=== PATIENT | male | born 1970 | race African-American/Black ===

== ENCOUNTER 2018-08-27 16:03 | Inpatient (IN) | payer MEDICARE, OTHER ==
[2018-08-27 16:29] LABS: #Basophils 0.1 thou/uL (0.0-0.2); #Lymphocytes 2.4 thou/uL (1.20-3.40); #Monocytes 0.7 thou/uL (0.11-0.59); #Neutrophils 14.7 thou/uL (1.40-6.50); %Basophils 0.3 % (0.0-1.0); %Eosinophils 0.2 % (0.0-10.0); %Lymphocytes 13.4 % (21.0-51.0); %Monocytes 3.9 % (0.0-10.0); %Neutrophils 82.2 % (42.0-75.0); Hemoglobin 14.8 g/dL (14.0-18.0); Mean Corpuscular Hemoglobin 30.4 pg (27.0-31.0); Mean Corpuscular Volume 95.2 fL (78.0-98.0); Platelet Count 190 thou/uL (130-400); RBC Distribution Width 11.9 % (11.5-14.5); Red Blood Cell (RBC) Count 4.86 mill/uL (4.70-6.10); White Blood Cell (WBC) Count 17.9 thou/uL (4.8-10.8)
--- NOTE | 2018-08-27 16:49 | CT ---
Head CT without contrast 08/27/2018: COMPARISON: 04/04/2013 HISTORY: Seizures TECHNIQUE: Axial CT imaging at 5 mm intervals from vertex through skull base without contrast FINDINGS: The imaged paranasal sinuses and mastoid air cells are well aerated. No displaced calvarial fracture. No intracranial hemorrhage, midline shift, mass effect, or ventricular enlargement. IMPRESSION: No acute findings.
[2018-08-27 16:50] LABS: ALT (SGPT) 24 U/L (8-55); AST (SGOT) 38 U/L (5-34); Acetaminophen Less than 6.0 mcg/mL (10.0-30.0); Albumin 4.4 g/dL (3.5-5.0); Alcohol Less than 10 mg/dL (Less than 10); Alkaline Phosphatase 65 U/L (40-150); Anion Gap 19 mmol/L (10-20); BUN (Urea Nitrogen) 16 mg/dL (8.9-20.6); Bilirubin, Total 0.6 mg/dL (0.2-1.2); Calc. Creatinine Clearance 0 mL/min (70-130); Calcium 9.5 mg/dL (7.8-10.44); Carbon Dioxide 16 mmol/L (22-29); Chloride 112 mmol/L (98-107); Estimated GFR-MDRD 70; Globulin 2.4 g/dL (2.4-3.5); Glucose 94 mg/dL (70-105); Potassium 4.3 mmol/L (3.5-5.1); Protein, Total 6.8 g/dL (6.0-8.3); Salicylate Less than 8.0 mg/dL (15.0-30.0); Sodium 143 mmol/L (136-145)
[2018-08-27] MEDS ORDERED: Lidocaine 1% w/Epinephrine 1:100K 20 ML VIAL ONE (18:06)
[2018-08-27] MEDS ORDERED: Lorazepam 2 MG/ML VIAL ONE (18:50)
[2018-08-27] MEDS ORDERED: levETIRAcetam 500 MG/100 ML PREMIX BAG ONE (19:15)
[2018-08-27 19:35] LABS: Amphetamine Not Detected (NotDetected); Barbiturates Screen Not Detected (NotDetected); Benzodiazepine Screen Detected (NotDetected); Cocaine Metabolite Screen Not Detected (NotDetected); Medtox Control Line Valid? VALID (VALID); Medtox Reader # READER 4; Methadone Not Detected (NotDetected); Methamphetamine Not Detected (NotDetected); Opiate Screen Not Detected (NotDetected); Oxycodone Screen Not Detected (NotDetected); Phencyclidine (PCP) Not Detected (NotDetected); THC/Cannabinoid Screen Not Detected (NotDetected); Tricyclic Screen Not Detected (NotDetected)
[2018-08-27] MEDS ORDERED: Ondansetron ODT 4 MG TAB PO PRN (20:03)
[2018-08-27] MEDS ORDERED: Acetaminophen 650 MG Suppository PR PRN (20:03)
[2018-08-27] MEDS ORDERED: Ondansetron PF 4 MG/2 ML Vial IVP PRN (20:03)
--- NOTE | 2018-08-27 20:53 | HP ---
PRIMARY CARE DOCTOR: Dr. Flo Culver. CODE STATUS: Full code. CHIEF COMPLAINT FOR THIS PATIENT: Seizure. TIME OF EVALUATION: 8:00 p.m. HISTORY OF PRESENT ILLNESS: This is a 48 years old male patient with past medical history of seizure. The patient has three witnessed seizures today starting early this morning. The brother is the one giving the history since the patient is status post Ativan and is postictal, so he is not cooperative with interview. The brother says the patient had a one time seizure in the morning. He recovered and he had a second one, fell back hitting the wall with some lacerations in the skull and for that reason was brought in here to the hospital. We have been unable to get accurate information about the medication that he is taking. He was given Keppra since the patient was being ready to be discharged, however, developed another episode of seizure. The patient also has been treated with Ativan that will continue to be treated overnight. We will monitor in the stroke unit and symptoms are severe with no clear triggers, no alleviating factors. PAST MEDICAL HISTORY: The patient has history of epilepsy. PAST SURGICAL HISTORY: Cholecystectomy. PSYCHIATRIC HISTORY: No previous psych history. SOCIAL HISTORY: No alcohol, no drugs no smoking history. FAMILY HISTORY: Reviewed, noncontributory to the current presentation. ALLERGIES: KNOWN ALLERGIES TO TEGRETOL. REPORTED MEDICATIONS: Unable to obtain. PHYSICAL EXAMINATION: VITAL SIGNS: On presentation, blood pressure 122/71, respiratory rate was 18, pain unable to rate, heart rate 99, temperature 97.5, oxygen saturation 96% on room air. GENERAL: The patient is postictal, sedated after Ativan been given for seizure. Not in acute distress. HEENT: Eyes, normal conjunctivae. Moist oral mucosa. Anicteric. No JVD. RESPIRATORY: Bilateral air entry. No rales. No wheezes. Symmetric expansion. CARDIOVASCULAR: Normal rate. Regular rhythm. No murmurs. No gallop. No edema. ABDOMEN: Soft. Normal bowel sounds. MUSCULOSKELETAL: He has baseline range of motion and strength. SKIN: Warm, intact. No pallor. No rash. No redness. Capillary refill seems to be intact. NEUROLOGICAL: The patient is moving all extremities. He is still postictal, also with deep stimulation. PSYCH: Unable to fully explore. IMAGING STUDIES: Brain CT was reviewed. The patient has no acute findings. LABORATORY DATA: Reviewed. The patient has white count 17.9, hemoglobin 14.8, platelet count 190. Chemistry: Sodium 143, potassium 4.3, chloride 112, carbon dioxide 16, anion gap 19, BUN 16, creatinine 1.31, previous creatinine was 0.94 , GFR 70. Glucose 94, calcium 9.5, total bilirubin 0.6, AST 38, ALT 24, alkaline phosphatase 65. Serum total protein 6.8, albumin 4.4, globulin 2.4 albumin globulin ratio 1.8. Toxicology was done and was positive for benzos. Negative for alcohol or drug screen. ASSESSMENT AND PLAN: The patient will be placed in the hospital with the follow medical problems: 1. Multiple seizures today, The patient was compliant with medication as per brother's report, it seems like he takes medications on a daily basis. There is no other pathology that seems to be involved in trigging seizures. We will get the home medication list to be able to order some levels once the brother is able to bring the medication list. For now, the patient got Keppra. The patient continued to be monitored and will get Ativan for acute episode of seizure control. We will monitor closely. Aspiration, falls and seizure precautions restarted. 2. Deep venous thrombosis prophylaxis. 3. Acute encephalopathy secondary to postictal state and also due to Ativan that was given. We will monitor. 4. KEVIN- cr increased more than 0.3 mg/dl from previous admission, we will hydrate and monitor, will monitor and treat accordingly. 5. Leukocytosis likely due acute seizure disorder no evidence of infection, we will monitor and adjust treatmetn if any signs of infection appears. Job ID: [id number] [facility]
[2018-08-27] MEDS ORDERED: Lorazepam 2 MG/ML VIAL SLOW IVP PRN (22:02)
[2018-08-27] MEDS: Sodium Chloride 0.9% 1,000 ML IV SCH (23:32)
[2018-08-27 23:40] VITALS: BMI 19.5
[2018-08-28 05:12] LABS: #Eosinphils 0.1 thou/uL (0.0-0.7); #Lymphocytes 2.4 thou/uL (1.20-3.40); #Monocytes 0.6 thou/uL (0.11-0.59); #Neutrophils 11.1 thou/uL (1.40-6.50); %Basophils 0.2 % (0.0-1.0); %Eosinophils 0.6 % (0.0-10.0); %Lymphocytes 16.8 % (21.0-51.0); %Monocytes 4.1 % (0.0-10.0); %Neutrophils 78.2 % (42.0-75.0); Hemoglobin 13.4 g/dL (14.0-18.0); Mean Corpuscular HGB CONC 31.5 g/dL (32.0-36.0); Mean Corpuscular Hemoglobin 29.9 pg (27.0-31.0); Mean Corpuscular Volume 95.1 fL (78.0-98.0); Mean Platelet Volume 7.9 fL (7.4-10.4); Platelet Count 166 thou/uL (130-400); RBC Distribution Width 11.8 % (11.5-14.5); Red Blood Cell (RBC) Count 4.49 mill/uL (4.70-6.10); White Blood Cell (WBC) Count 14.2 thou/uL (4.8-10.8)
[2018-08-28 05:27] LABS: Anion Gap 11 mmol/L (10-20); BUN (Urea Nitrogen) 17 mg/dL (8.9-20.6); Calc. Creatinine Clearance 65 mL/min (70-130); Calcium 9.3 mg/dL (7.8-10.44); Carbon Dioxide 23 mmol/L (22-29); Chloride 114 mmol/L (98-107); Estimated GFR-MDRD 83; Glucose 85 mg/dL (70-105); Potassium 3.7 mmol/L (3.5-5.1); Sodium 144 mmol/L (136-145)
[2018-08-28] MEDS: Enoxaparin Sodium 40 MG/0.4 ML SYRINGE SC SCH (08:29)
[2018-08-28] MEDS: Sodium Chloride 0.9% 1,000 ML IV SCH ×2 (08:30→16:42)
[2018-08-28] MEDS ORDERED: Lacosamide 50 mg Tablet PO SCH ×2 (09:00→11:00)
[2018-08-28] MEDS: Topiramate 100 MG TAB PO SCH ×2 (09:53→20:37)
[2018-08-28] MEDS: Acetaminophen 325 MG TAB PO PRN ×2 (10:40→14:56)
--- NOTE | 2018-08-28 13:41 | PDOC.PN ---
- Subjective Encounter Start Date: 08/28/18 Encounter Start Time: 13:39 Patient lying in bed with family at bedside, he reports feeling better no seizure like activity today. His home dose of Lacosamide increased and he is tolerating well. He denies chest pain, palpitations, shortness of breath or abdominal pain. - Objective Resuscitation Status - Order Detail: 08/27/18 20:03 Resuscitation Status Routine Resuscitation Status: FULL: Full Resuscitation MAR Reviewed: Yes Vital Signs & Weight: Vital Signs (12 hours) Temp Pulse Resp BP Pulse Ox 08/28/18 11:58 98.3 F 78 16 114/68 99 08/28/18 08:00 97.8 F 86 14 107/73 100 08/28/18 03:38 98 F 73 16 105/61 100 Weight Admit Weight 128 lb 11.2 oz Weight 128 lb 11.2 oz I&O: 08/27/18 08/28/18 08/29/18 06:59 06:59 06:59 Intake Total 825 Output Total 0 Balance 825 Result Diagrams: 08/28/18 04:55 08/28/18 04:55 Radiology Reviewed by me: Yes Phys Exam - Physical Examination Constitutional: NAD HEENT: moist MMs, oral pharynx no lesions Neck: no nodes, supple Respiratory: no wheezing, clear to auscultation bilateral Cardiovascular: RRR, no significant murmur Gastrointestinal: soft, positive bowel sounds Musculoskeletal: no edema, pulses present Neurological: non-focal, moves all 4 limbs Appears at baseline Lymphatic: no nodes Psychiatric: normal affect, A&O x 3 Skin: no rash, cap refill <2 seconds Dx/Plan (1) Seizure Code(s): R56.9 - UNSPECIFIED CONVULSIONS Status: Acute - Plan cont current plan of care, plan discussed w/ family * Resume home medications * Continue new increased dose of lacosaminde * Neurology following * Add PT/OT * Add protein supplementation
[2018-08-28] MEDS: Lacosamide 50 mg Tablet PO SCH (20:45)
[2018-08-29] MEDS: Sodium Chloride 0.9% 1,000 ML IV SCH ×2 (02:24→08:47)
[2018-08-29] MEDS: Topiramate 100 MG TAB PO SCH (08:43)
[2018-08-29] MEDS: Lacosamide 50 mg Tablet PO SCH (08:43)
[2018-08-29] MEDS: Enoxaparin Sodium 40 MG/0.4 ML SYRINGE SC SCH (08:47)
[2018-08-29 11:52] VITALS: TEMP 98.1
[2018-08-29 11:59] VITALS: BP 143/88
[2018-08-29 12:27] LABS: Ref Lab Test Ordered TRAMADOL; Reference Lab Name LABCORP
--- NOTE | 2018-08-29 12:41 | DIS ---
DATE OF ADMISSION: 08/27/2018 DATE OF DISCHARGE: 08/29/2018 TRANSFER OF CARE. PRIMARY CARE: [facility]. DISPOSITION: Discharged home. FINAL DIAGNOSES: Seizure disorder with breakthrough seizures, encephalopathy, resolved. DISCHARGE MEDICATIONS: 1. Vimpat 200 mg twice a day. 2. Omeprazole 40 mg twice a day. 3. Seroquel 100 mg at bedtime. 4. Lorazepam 1 mg daily. 5. Naprosyn 500 mg p.o. b.i.d. p.r.n. 6. Topiramate 100 mg p.o. b.i.d. 7. Butalbital/acetaminophen/caffeine. ALLERGIES: ALLERGIC TO TEGRETOL. CODE STATUS: Full. DISCHARGE DIET: Diet as tolerated. PENDING AT THE TIME OF DISCHARGE: Nothing. CONSULTATIONS: Dr. Flo Culver, Neurology. PROCEDURES: None. HOSPITAL COURSE: The patient was admitted to [facility] to [facility] with seizure disorder. He has had three witnessed seizures on the day, given Ativan in the emergency room, postictal. He has previous history of seizures as mentioned before. The patient was given Keppra in the emergency room. Dr. Culver was consulted. His Vimpat was increased from 150 twice a day to 200 twice a day. He has been seizure-free. The patient denied any history of psychiatric disease. He is feeling well. Neurological exam is normal. He has had no seizures. He is being discharged for a followup with Dr. Culver. PERTINENT LABORATORY: Comprehensive metabolic profile initially showed a mild acidosis with a CO2 of 16, this is resolved now 23, mild elevated creatinine which is now normal at 1.13. CBC showed an elevated white count of 17.9, came down to 14.2 with no bandemia, etc. Hemoglobin is normal 14.8, platelet count is normal 190,000. The patient is being discharged for followup with Dr. Culver. Prescriptions have been written for the increased dose of Vimpat. He is to follow up with Dr. Culver in one week. He has been instructed not to drive. Job ID: [id number]
[2018-08-30 10:12] LABS: Topiramate (Topamax) Test 6.5 ug/mL (2.0-25.0)
== END 2018-08-29 12:16 | disposition home or self-care (01) | DRG 101 ==
LOC: ERS 16:03 → OBSVTOIN 19:17 → 2SE 19:17
PROVIDERS: ADMIT Hospitalist; ATTEND Hospitalist
DX: G40.909 Epilepsy, unspecified, not intractable, without status epilepticus (principal); E87.2 Acidosis; N17.9 Acute kidney failure, unspecified; D72.829 Elevated white blood cell count, unspecified; S01.81XA Laceration without foreign body of other part of head, initial encounter; X58.XXXA Exposure to other specified factors, initial encounter; Z90.49 Acquired absence of other specified parts of digestive tract; Z88.8 Allergy status to other drugs, medicaments and biological substances
CPT/HCPCS: 12002; 12013; 36415; 51701; 70450; 80048; 80053; 80201; 80306; 80307; 85025; 96365; 96372; J1650; J1953; J2001; J2060